=== PATIENT | female | born 1980 | race Caucasian/White ===

== ENCOUNTER 2017-11-08 15:52 | Emergency (ER) | payer BC, MEDICAID ==
[~2017-11-08] VITALS: Ht 172.7 cm; Wt 81.5 kg
[~2017-11-08 15:52] MED LIST: HYDR-565 PO; ONDA4TAB6 PO; ONDA8TAB9 PO
[2017-11-08 16:20] LABS: BASOPHILS % (AUTO) 0.2 % (0-1); EOSINOPHILS # (AUTO) 0.1 X10'3 (0-0.9); EOSINOPHILS % (AUTO) 1.1 % (0-6); HEMATOCRIT 39.4 % (35.0-45.0); HEMOGLOBIN 13.1 g/dl (12.0-16.0); LYMPHOCYTES # (AUTO) 3.3 X10'3 (1.1-4.8); LYMPHOCYTES % (AUTO) 31.7 % (21-51); MEAN CORPUSCULAR HEMOGLOBIN 29.1 PG (27.0-31.0); MEAN CORPUSCULAR HGB CONC 33.3 % (33.0-36.5); MEAN CORPUSCULAR VOLUME 87.4 FL (78-98); MONOCYTES # (AUTO) 0.5 X10'3 (0-0.9); MONOCYTES % (AUTO) 4.8 % (2-12); NEUTROPHILS # (AUTO) 6.6 X10'3 (1.8-7.7); NEUTROPHILS % (AUTO) 62.2 % (42-75); PLATELET COUNT 286 X10'3 (140-440); RED BLOOD COUNT 4.51 X10'6 (4.20-5.60); RED CELL DISTRIBUTION WIDTH 11.6 % (11.5-14.5); WHITE BLOOD COUNT 10.5 X10'3 (4.5-11.0)
[2017-11-08 16:26] LABS: INR 1.1 INR; PROTHROMBIN TIME 10.9 SECONDS (9.0-12.0)
[2017-11-08 16:31] LABS: ALANINE AMINOTRANSFERASE 23 U/L (12-78); ALBUMIN 3.8 G/DL (3.4-5.0); ALBUMIN/GLOBULIN RATIO 1.1 (1.1-1.5); ALKALINE PHOSPHATASE 49 IU/L (46-116); ANION GAP 8 (8-16); ASPARTATE AMINO TRANSFERASE 15 U/L (10-37); BILIRUBIN,TOTAL 0.7 MG/DL (0.1-1.0); BLOOD UREA NITROGEN 10 MG/DL (7-18); BUN/CREATININE RATIO 17.5 (6.6-38.0); CALCIUM 8.8 MG/DL (8.5-10.1); CHLORIDE 104 MMOL/L (99-107); CREATININE 0.57 MG/DL (0.40-0.90); GLUCOSE 89 MG/DL (70-104); POTASSIUM 3.7 MMOL/L (3.5-5.1); SODIUM 141 MMOL/L (135-145); TOTAL CARBON DIOXIDE 28.9 MMOL/L (24-32); TOTAL PROTEIN 7.4 G/DL (6.4-8.2); eGFR > 90 ML/MIN
[2017-11-08 17:00] LABS: CLARITY,URINE CLEAR (Clear); COLOR,URINE YELLOW (Yellow); GLUCOSE, URINE NEGATIVE (Neg); KETONES,URINE NEGATIVE (Neg); LEUKOCYTE ESTERASE ,URINE NEGATIVE (Neg); NITRITES, URINE NEGATIVE (Neg); OCCULT BLOOD,URINE TRACE-INTACT (Neg); PROTEIN,URINE NEGATIVE (Neg); UROBILINOGEN,URINE 0.2 E.U/dL (0.2-1.0)
[2017-11-08 17:03] LABS: URINE HCG NEGATIVE (NEG)
[2017-11-08 17:18] LABS: UA COLLECTION TYPE CLN CATCH MIDSTREAM
[2017-11-08 17:20] LABS: BACTERIA,URINE NONE SEEN /HPF (Neg); RBC,URINE 0-2 /HPF (0-2); SQUAMOUS EPITHELIAL CELL,UR FEW /LPF (FEW); WBC,URINE 0-4 /HPF (0-4)
[2017-11-08] MEDS ORDERED: morphine 4 MG/ML inj SYRINge IV ONE (18:15)
[2017-11-08] MEDS ORDERED: ondansetron/PF 4mg/2ml inj IV ONE (18:25)
[2017-11-08] MEDS ORDERED: normal saline 1000ml 1,000 ML IV ONE (18:50)
[2017-11-08 19:29] VITALS: BP 128/82
== END 2017-11-08 19:30 | disposition home or self-care (01) ==
LOC: ER 15:53
DX: R10.11 Right upper quadrant pain (principal); R11.2 Nausea with vomiting, unspecified; Z87.442 Personal history of urinary calculi
CPT/HCPCS: 36415; 74176; 80053; 81001; 81025; 85025; 85610; 96374; 96375; 99285; J2270; J2405

== ENCOUNTER 2017-11-20 10:15 | Emergency (ER) | payer BC, MEDICAID ==
[~2017-11-20] VITALS: Ht 172.7 cm; Wt 78.6 kg
[~2017-11-20 10:15] MED LIST changes: +HYDR-4353 PO; -HYDR-565 PO
[2017-11-20] MEDS ORDERED: ondansetron/PF 4mg/2ml inj IV ONE (10:30)
[2017-11-20] MEDS ORDERED: ketorolac trometh. 30mg/ml inj. IV ONE (10:30)
[2017-11-20] MEDS ORDERED: normal saline 1000ML IV soln IVB ONE (10:30)
[2017-11-20] MEDS ORDERED: morphine 4 MG/ML inj SYRINge IV PRN (10:30)
[2017-11-20 10:42] LABS: BASOPHILS % (AUTO) 0.2 % (0-1); EOSINOPHILS # (AUTO) 0.3 X10'3 (0-0.9); EOSINOPHILS % (AUTO) 2.3 % (0-6); HEMATOCRIT 42.2 % (35.0-45.0); LYMPHOCYTES # (AUTO) 4.5 X10'3 (1.1-4.8); LYMPHOCYTES % (AUTO) 33.4 % (21-51); MEAN CORPUSCULAR HGB CONC 33.2 % (33.0-36.5); MEAN CORPUSCULAR VOLUME 87.2 FL (78-98); MEAN PLATELET VOLUME 8.8 FL (7.4-10.4); MONOCYTES # (AUTO) 0.7 X10'3 (0-0.9); MONOCYTES % (AUTO) 5.4 % (2-12); NEUTROPHILS % (AUTO) 58.7 % (42-75); PLATELET COUNT 317 X10'3 (140-440); RED BLOOD COUNT 4.84 X10'6 (4.20-5.60); RED CELL DISTRIBUTION WIDTH 12.6 % (11.5-14.5); WHITE BLOOD COUNT 13.6 X10'3 (4.5-11.0)
[2017-11-20 10:52] LABS: ALANINE AMINOTRANSFERASE 25 U/L (12-78); ALBUMIN 4.1 G/DL (3.4-5.0); ALBUMIN/GLOBULIN RATIO 1.1 (1.1-1.5); ALKALINE PHOSPHATASE 50 IU/L (46-116); ANION GAP 14 (8-16); ASPARTATE AMINO TRANSFERASE 13 U/L (10-37); BILIRUBIN,TOTAL 1.2 MG/DL (0.1-1.0); BLOOD UREA NITROGEN 7 MG/DL (7-18); BUN/CREATININE RATIO 8.9 (6.6-38.0); CALCIUM 9.1 MG/DL (8.5-10.1); CHLORIDE 101 MMOL/L (99-107); CREATININE 0.79 MG/DL (0.40-0.90); GLUCOSE 112 MG/DL (70-104); LIPASE 149 U/L (73-393); POTASSIUM 3.3 MMOL/L (3.5-5.1); SODIUM 138 MMOL/L (135-145); TOTAL CARBON DIOXIDE 23.1 MMOL/L (24-32); TOTAL PROTEIN 7.9 G/DL (6.4-8.2); eGFR 82 ML/MIN
[2017-11-20 11:20] LABS: URINE HCG NEGATIVE (NEG)
[2017-11-20 11:21] LABS: CLARITY,URINE CLEAR (Clear); COLOR,URINE YELLOW (Yellow); GLUCOSE, URINE NEGATIVE (Neg); KETONES,URINE NEGATIVE (Neg); LEUKOCYTE ESTERASE ,URINE NEGATIVE (Neg); NITRITES, URINE NEGATIVE (Neg); OCCULT BLOOD,URINE MODERATE (Neg); PROTEIN,URINE NEGATIVE (Neg); UROBILINOGEN,URINE 0.2 E.U/dL (0.2-1.0)
[2017-11-20 11:22] LABS: UA COLLECTION TYPE CLN CATCH MIDSTREAM
[2017-11-20 11:28] LABS: BACTERIA,URINE 1+ /HPF (Neg); MUCUS STRANDS FEW /LPF (Neg); SQUAMOUS EPITHELIAL CELL,UR FEW /LPF (FEW); WBC,URINE NONE SEEN /HPF (0-4)
[2017-11-20 11:41] LABS: URINE AMPHETAMINE SCREEN NEGATIVE (Neg); URINE BARBITUATE SCREEN NEGATIVE (Neg); URINE BENZODIAZEPINES SCREEN NEGATIVE (Neg); URINE CANNABINOID SCREEN POSITIVE (Neg); URINE COCAINE SCREEN NEGATIVE (Neg); URINE METHADONE SCREEN NEGATIVE (Neg); URINE OPIATE SCREEN POSITIVE (Neg); URINE PHENCYCLIDINE SCREEN NEGATIVE (Neg)
[2017-11-20] MEDS ORDERED: HYDR-4353 PO (12:32)
[2017-11-20] MEDS ORDERED: HYDROcodone/acetaminophen 10/325mg tab PO ONE (12:35)
[2017-11-20 13:05] VITALS: BP 142/75
== END 2017-11-20 13:13 | disposition home or self-care (01) ==
LOC: ER 10:16
DX: R10.2 Pelvic and perineal pain (principal); R10.11 Right upper quadrant pain; Z87.442 Personal history of urinary calculi
CPT/HCPCS: 36415; 76856; 80053; 80305; 81001; 81025; 83690; 85025; 96374; 96375; 99285; J1885; J2270; J2405

== ENCOUNTER 2019-09-29 13:09 | Emergency (ER) | payer BC, MEDICAID ==
[~2019-09-29] VITALS: Ht 172.7 cm; Wt 84.0 kg
[2019-09-29] MEDS ORDERED: ketorolac tromethamine 15mg/ml inj. IM ONE (14:30)
[2019-09-29] MEDS ORDERED: orphenadrine citrate 60mg/2ml inj. IM ONE (14:30)
[2019-09-29 15:21] VITALS: BP 136/98
--- NOTE | 2019-09-29 15:21 | NUR ---
pt to [facility]
[2019-09-29] MEDS ORDERED: ORPH100T2 PO (16:03)
[2019-09-29] MEDS ORDERED: IBUP-1984 PO (16:03)
== END 2019-09-29 16:17 | disposition home or self-care (01) ==
LOC: ER 13:10
DX: M54.12 Radiculopathy, cervical region (principal); M79.601 Pain in right arm; Z79.899 Other long term (current) drug therapy
CPT/HCPCS: 72050; 72125; 73030; 96372; 99284; J1885; J2360